=== PATIENT | female | born 1965 | race Native Hawaiian/Other Pacific Islander ===

== ENCOUNTER 2017-05-10 14:54 | Outpatient (CLI) | payer OTHER | END 2017-05-10 19:31 | disposition home or self-care (01) | LOC: MAMMO 14:54 | DX: Z12.31 Encounter for screening mammogram for malignant neoplasm of breast (principal) | CPT/HCPCS: G0202-TC ==

== ENCOUNTER 2019-01-10 15:45 | Outpatient (CLI) | payer OTHER | END 2019-01-10 21:12 | disposition home or self-care (01) | LOC: MAMMO 15:45 | DX: Z12.31 Encounter for screening mammogram for malignant neoplasm of breast (principal) ==

== ENCOUNTER 2022-03-27 15:01 | Outpatient (CLI) | payer OTHER | END 2022-03-27 20:30 | disposition home or self-care (01) | LOC: MRI 15:01 | PROVIDERS: ATTEND Nurse Practitioner Family | DX: M54.16 Radiculopathy, lumbar region (principal) ==

== ENCOUNTER → 2023-01-14 | Outpatient (CLI) | payer OTHER | LOC: MAMMO 14:00 | PROVIDERS: ATTEND Obstetrics & Gynecology | DX: Z12.31 Encounter for screening mammogram for malignant neoplasm of breast (principal) ==